=== PATIENT | male | born 1965 | race Caucasian/White ===

== ENCOUNTER → 2016-10-31 | Outpatient (CLI) | payer BC ==
--- NOTE | 2016-10-31 09:28 | PCVCIMAG ---
EXAM: BILATERAL LOWER EXTREMITY ARTERIAL DUPLEX INDICATION: Peripheral Arterial Disease. Leg pain. Nonhealing ulcer right foot and FINDINGS: Right Leg: Satisfactory arterial waveforms in the common femoral and profunda femoral arteries. The mid and distal [place] superficial femoral artery and the entire right [place] popliteal artery show complete occlusion throughout. Occlusion throughout the anterior tibial artery. Postsurgical changes of a femoral to distal posterior tibial artery bypass graft with good flow throughout the graft and no evidence of significant stenosis. The posterior tibial artery and peroneal artery are patent. Left Leg: Satisfactory arterial waveforms in the common femoral and profunda femoral arteries. Occlusion throughout the mid superficial femoral artery. The popliteal artery is patent. Occlusion throughout the anterior tibial artery. The peroneal artery and posterior tibial arteries are patent. IMPRESSION: Previous right femoral-distal posterior tibial artery bypass graft showing good patency as detailed above. Occlusion of the mid [place] left superficial femoral artery. Occlusion of the right and left anterior tibial arteries. LOC:[id number]
--- NOTE | 2016-10-31 11:57 | PCVCIMAG ---
EXAM: BILATERAL CAROTID DUPLEX INDICATION: Carotid Occlusive Disease. FINDINGS: Doppler Measurements (centimeters per second): RIGHT: Peak CCA-79, Peak ECA-90, Diastolic ICA-151, Peak ICA-401, ICA/CCA Ratio-5.1. LEFT: Peak CCA-56, Peak ECA-94, Diastolic ICA-24, Peak ICA-65, ICA/CCA Ratio-1.2. RIGHT CAROTID: The carotid bulb has moderate plaque. The proximal internal carotid artery shows 90-95% stenosis. The common carotid artery shows no significant stenosis. The external carotid artery shows no significant stenosis. LEFT CAROTID: The carotid bulb has moderate plaque. The proximal internal carotid artery shows <40% stenosis. The common carotid artery shows no significant stenosis. The external carotid artery shows no significant stenosis. Antegrade flow in both vertebral arteries. IMPRESSION: 90-95% stenosis of the right internal carotid artery with moderate plaque. <40% stenosis of the left internal carotid artery with moderate plaque. LOC:[place] [id number]
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
--- NOTE | 2016-10-31 13:51 | PCVCIMAG ---
APPROVED REPORT Study performed: 10/31/2016 07:21:16 EXAM: Comprehensive 2D, Doppler, and color-flow Echocardiogram Patient Location: Echo lab Status: routine BSA: 2.26 HR: 71 bpmBP: 154/82 mmHg Rhythm: NSR Other Information Study Quality: Adequate Risk Factors: Cardiac Risk Factors: HTN, DM,PAD, SOB Indications Abnormal ECG Chest Pressure Diabetes Dyspnea HX AORTO-FEM BYPASS 2D Dimensions LVEF(%): 31.52 (>50%) IVSd: 7.67 (7-11mm) LVDd: 61.47 mm PWd: 11.08 (7-11mm)Ascending Ao: 29.35 (22-36mm) LVDs: 52.13 (25-40mm) Left Atrium: 37.62 (27-40mm) Aortic Root: 24.52 mm LV Single Plane 4CH: 34.50 % LV Single Plane 2CH: 47.20 %Rivera's LVEF: 40.85 % Biplane EF: 38.0 % Volumes Left Atrial Volume (Systole) Single Plane 4CH: 72.40 mLSingle Plane 2CH: 44.76 mL Biplane LA Volume: 60.00 mLLA ESV Index: 26.00 mL/m2 Aortic Valve AoV Peak Franc.: 1.14 m/s AO Peak Gr.: 5.18 mmHgLVOT Max P.55 mmHg LVOT Max V: 0.80 m/s Mitral Valve E/A Ratio: 1.3 MV Decel. Time: 122.48 ms MV E Max Franc.: 0.95 m/s MV A Franc.: 0.72 m/s IVRT: 86.51 ms TDI E/Lateral E': 15.83E/Medial E': 15.83 Medial E' Franc.: 0.06 m/s Lateral E' Franc.: 0.06 m/s Pulmonary Valve PV Peak Franc.: 1.09 m/sPV Peak Gr.: 4.71 mmHg Pulmonary Vein P Vein S: 0.73 m/sP Vein A: 0.30 m/s P Vein D: 0.43 m/sP Vein A Dur.: 120.0 msec P Vein S/D Ratio: 1.70 Tricuspid Valve TV Vmax: 0.60 m/s Left Ventricle Left ventricle is mildly dilated. There is global hypokinesis of the left ventricle. Anteroseptal hypokinesis with dilitation. Inferoseptal ,basal inferior and inferolateral moderate hypokinesis There is normal left ventricular wall thickness. Left ventricular systolic function is moderately decreased.hypokinetic inf base LVEF is 35-40%. Grade II - pseudonormal filling dynamics. Right Ventricle The right ventricle is normal size. The right ventricular systolic function is normal. Atria The left atrium size is normal. The right atrium size is normal. Aortic Valve Aortic valve is trileaflet. The Aortic valve is mildly sclerotic. No aortic regurgitation is present. There is no aortic valvular stenosis. Mitral Valve The mitral valve is normal in structure. There is no mitral valve regurgitation noted. No evidence of mitral valve stenosis. Tricuspid Valve The tricuspid valve is normal in structure. There is no tricuspid valve regurgitation noted. Pulmonic Valve The pulmonary valve is normal in structure. There is no pulmonic valvular regurgitation. Great Vessels The aortic root is normal in size. IVC is normal in size and collapses with >50% inspiration Pericardium There is no pericardial effusion. <Conclusion> Left ventricle is mildly dilated. Left ventricular systolic function is moderately decreased.hypokinetic inf base LVEF is 35-40%. Grade II - pseudonormal filling dynamics. The left atrium size is normal. Aortic valve is trileaflet. The Aortic valve is mildly sclerotic. There is no aortic valvular stenosis. There is no mitral valve regurgitation noted. There is no tricuspid valve regurgitation noted. There is no pericardial effusion.
--- NOTE | 2016-10-31 17:40 | PCVCINTER ---
EXAM: 1. CERVICOEPHALIC ARCH AORTOGRAM 2. BILATERAL CAROTID ANGIOGRAPHY 3. LEFT VERTEBROBASILAR ANGIOGRAPHY 4. BILATERAL RENAL ANGIOGRAPHY 5. AORTOGRAM AND BILATERAL LOWER EXTREMITY ANGIOGRAPHY INDICATION: Carotid occlusive disease. Left subclavian steal. Hypertension. Renal atherosclerosis. PROCEDURE: Procedure and risks of the procedures listed above were discussed with the patient and consent obtained. Risks including but not limited to bleeding, infection, stroke, vascular injury, neurologic injury, embolization, allergic reactions, and contrast-induced nephropathy requiring dialysis were discussed as appropriate and consent obtained. Patient was placed on the angiography table. IV conscious sedation was utilized with appropriate monitoring for 60 minutes. The left groin was prepped and draped in the normal sterile fashion. Ultrasound was used to interrogate the left groin and demonstrate the left common femoral artery. An ultrasound image was saved. Under ultrasound guidance a 21 gauge needle was used to gain access into the left common femoral artery and a 6F vascular sheath was placed. Catheter was placed into the ascending aorta and cervicocephalic aortic arch angiogram performed. Catheter was placed into the suprarenal abdominal aorta and abdominal aortic angiogram performed. Catheter was placed at the aortic bifurcation and both oblique views of the pelvis were obtained. Catheter was placed into the right common carotid artery and right common carotid angiogram performed. Catheter was placed into the left common carotid artery and left common carotid angiogram performed. Catheter was placed into the left subclavian artery and left vertebro-basilar angiogram performed. Catheter was placed into the right renal artery and right renal angiogram performed. Catheter was placed into the left renal artery and left renal angiogram performed. Catheter was placed to the level of the right external iliac artery and right leg runoff angiography was performed. Catheter placed in the left external iliac artery and left leg runoff angiogram was obtained. Dr. Bailey joined the procedure and he then performed coronary angiography. Please see his separate dictation for full details. Catheters and wires were removed and hemostasis obtained using the Exoseal device. No immediate complications. FINDINGS: Cervicocephalic arch aortogram: The origins of the great vessels are patent. Cranial directed flow in both vertebral arteries. Right common carotid angiogram: This injection fills the right anterior cerebral and right middle cerebral distributions which show mild scattered plaque without significant stenosis. Diffuse plaque in the cavernous and petrous carotids without flow-limiting stenosis. Moderate plaque in the carotid bulb results in 85% tapered stenosis in the proximal internal carotid artery. The common and external carotid arteries are patent. Left common carotid angiogram: This injection fills the right and left anterior cerebral and the left middle cerebral distribution which show mild scattered plaque without focal abnormality. There is a 60% stenosis at the junction of the C3/C4 cavernous carotid artery. Moderate plaque at the petrous carotid without significant stenosis. Minimal stenosis at the origin of the internal carotid artery. The common carotid and external carotid arteries show good patency. Left vertebrobasilar angiogram: The left vertebral artery is patent as is the basilar artery and both posterior cerebral arteries. Right renal angiogram: Minimal plaque proximal vessel does not cause significant stenosis. No branch vessel stenosis. Left renal angiogram: Minimal plaque proximal vessel does not cause significant stenosis. No branch vessel stenosis. Aortogram: There is one right and one left renal artery. Moderate plaque infrarenal abdominal aorta without significant stenosis. Pelvis: Mild plaque right common iliac artery without significant stenosis. Moderate plaque left common iliac artery with 40% stenosis. Both internal iliac arteries are patent. Both external iliac arteries are patent. The right and left profunda femoral arteries show adequate patency. Right leg: The [place] superficial femoral artery and popliteal artery show complete occlusion throughout. Post surgical changes of femoral to distal posterior tibial artery saphenous vein bypass graft is widely patent. There is retrograde filling of the upper posterior tibial artery which refills the tibioperoneal trunk and also the peroneal artery. The distal posterior tibial artery also shows good patency to runoff into the plantar arteries. Left leg: The [place] superficial femoral artery shows complete occlusion throughout with refilling distally. The popliteal artery is patent. The anterior tibial artery is occluded. High-grade stenosis at the origin of the posterior tibial artery. Posterior tibial artery otherwise patent. Peroneal artery is patent throughout its length. IMPRESSION: 85% tapered stenosis proximal right internal carotid artery. 60% stenosis left cavernous internal carotid artery as described. The cervical left internal carotid artery shows satisfactory patency. Previous right femoral-distal posterior tibial arteries bypass graft remains widely patent. Occlusion of the left superficial femoral artery. Bilateral infrapopliteal arterial occlusive disease as reviewed above. impression LOC:[id number]
--- NOTE | 2016-11-01 09:20 | PCVCINTER ---
APPROVED REPORT Patient Details Patient Status: Out-Patient Room #: 4 The patient is a 51 year-old Male Event Personnel Leo Diana MD, Celestino Hill RN, Tory Galvan RT(R)(), Nora Frederick RT(R) Risk Factors Dysplipidemia (Type: 0), Peripheral Vascular Disease, Physical Activity, Diabetes Tobacco History (Current/Recent(w/in 1 year)) Previous Procedures/Diagnoses Previous Vascular Surgery, Diabetes, PVD Procedure Narrative The patient was brought electively to the Cardiac Catheterization Laboratory and was prepped and draped in a sterile manner. The right coronary system was accessed and visualized with a JR4 Diagnostic catheter. The left coronary system was accessed and visualized with a JL 3.5 Diagnostic catheter. The left ventricle was accessed and visualized with a Pigtail Diagnostic catheter. Left ventriculogram was performed in BURNS projection. Closure device was deployed with a 6 Fr FISH. Hemostasis was obtained with manual pressure following sheath removal without any complications. The patient tolerated the procedure well and there were no complications associated with the procedure. There was no hematoma. Hemodynamics The aortic pressure is 134/89 mmHg with a mean of 111 mmHg. The left ventricular pressure is 149/11 mmHg with a mean of 26 mmHg. Conclusion #1 normal left ventricular size with inferior basilar hypokinesis EF 40-45% #2 left main mildly heavily calcified with distal disease of 30-40% #3 LAD heavily proximal calcified proximal third of this vessel 60-70% diffuse disease distal two thirds well-preserved extends around the apex #4 moderate diagonal branch subtotally occluded off the LAD which has a fair amount of distribution and preserved distally #5 circumflex OM system nondominant high-grade proximal disease and a large OM and also diffuse disease in the proximal circumflex although nondominant #6 dominant right proximally occluded there is extensive collateralization of the PDA and YARITZA which are quite large from the left system. Recommendations and plan patient also has a high-grade carotid stenosis. This is moderately severe three-vessel disease equivalent. Mild LV dysfunction suspect this may improve with revascularization of the right coronary artery Extensive proximal calcified disease in the left system. Patient will be best served with revascularization by bypass surgery I suspected carotid endarterectomy should be performed first. I will have CV surgery consult and render opinion. We'll lab cardioprotective medications and advanced lipid therapy with high-dose statins. Discharge to home no lifting for 48 hours no line tub Jacuzzi or Celeste for a week. Appointment CV surgery this week regarding carotid endarterectomy and revascularization coronary system
== END | disposition home or self-care (01) ==
LOC: PCVCIMAG 06:58
PROVIDERS: ATTEND Internal Medicine Cardiovascular Disease
DX: I65.23 Occlusion and stenosis of bilateral carotid arteries (principal); G45.8 Other transient cerebral ischemic attacks and related syndromes; I10 Essential (primary) hypertension; I70.1 Atherosclerosis of renal artery; E11.51 Type 2 diabetes mellitus with diabetic peripheral angiopathy without gangrene
CPT/HCPCS: 36223; 36246; 36252; 75716; 76937; 78452; 93017; 93306; 93458; 93880; 93925; 99152; 99153; A9500; C1751; C1769; C1894; Q9967

== ENCOUNTER → 2017-02-22 | Outpatient (CLI) | payer BC ==
[~2017-02-22] MED LIST: DIAZEPAM 10 MG TABLET. ONE; EPINEPHrine 1 MG/ML VIAL ONE; IODIXANOL 270 MG/ML 100 ML VIAL. ONE; IOHEXOL 300 MG/ML 100ML VIAL. ONE; IOHEXOL 350 MG/ML 100 ML VIAL. ONE; IV NORMAL SALINE 1000ML BAG 1,000 ML ONE; LIDOCAINE 1% Multi-Dose 20 ML VIAL. ONE; MIDAZOLAM HCL/PF 2 MG/2 ML VIAL. ONE; REGADENOSON 0.4 MG/5 ML DISP.SYRIN. IV ONE; fentaNYL PF VIAL 100 MCG/2 ML VIAL ONE; hydrALAZINE 20 MG/ML VIAL. ONE
--- NOTE | 2017-02-22 11:12 | PCVCIMAG ---
APPROVED REPORT Study performed: 02/22/2017 09:45:29 EXAM: Comprehensive 2D, Doppler, and color-flow Echocardiogram Patient Location: Echo lab Status: routine BSA: 2.24 HR: 98 bpmBP: 138/70 mmHg Rhythm: NSR Other Information Study Quality: Adequate Risk Factors: Cardiac Risk Factors: HTN, Hyperlipidemia, DM, Smoking, SOB Indications COPD CAD Hypertension/HDD CABG, PVD, CVA, Carotid Disease 2D Dimensions LVEF(%): 60.27 (>50%) IVSd: 10.84 (7-11mm)LVOT Diam: 23.16 (18-24mm) LVDd: 59.72 mm PWd: 10.46 (7-11mm)Ascending Ao: 29.20 (22-36mm) LVDs: 40.18 (25-40mm) Left Atrium: 37.81 (27-40mm) Aortic Root: 30.12 mm LV Single Plane 4CH: 37.61 % LV Single Plane 2CH: 42.94 %Rivera's LVEF: 40.28 % Biplane EF: 39.5 % Volumes Left Atrial Volume (Systole) Single Plane 4CH: 52.76 mLSingle Plane 2CH: 43.93 mL LA ESV Index: 24.00 mL/m2 Aortic Valve AoV Peak Franc.: 1.26 m/s AO Peak Gr.: 6.36 mmHgLVOT Max P.96 mmHg LVOT Max V: 0.86 m/s NICKOLAS Vmax: 2.87 cm2 Mitral Valve E/A Ratio: 0.7 MV Decel. Time: 220.88 ms MV E Max Franc.: 0.57 m/s MV A Franc.: 0.84 m/s TDI E/Lateral E': 7.13E/Medial E': 9.50 Medial E' Franc.: 0.06 m/s Lateral E' Franc.: 0.08 m/s Pulmonary Valve PV Peak Gr.: 2.03 mmHg Pulmonary Vein P Vein S: 0.44 m/sP Vein A: 0.22 m/s P Vein D: 0.32 m/sP Vein A Dur.: 58.8 msec P Vein S/D Ratio: 1.38 Left Ventricle The left ventricle is normal size. Global hypokinesis. Lateral wall hypokinetic, inferior wall hypokinesis. There is normal left ventricular wall thickness. Left ventricular systolic function is moderately decreased.distal septum apex hypo LVEF is 35-40%. The left ventricular diastolic function is normal. Right Ventricle The right ventricle is normal size. The right ventricular systolic function is normal. Atria The left atrium size is normal. The right atrium size is normal. Aortic Valve The aortic valve is normal in structure. No aortic regurgitation is present. There is no aortic valvular stenosis. Mitral Valve The mitral valve is normal in structure. There is no mitral valve regurgitation noted. No evidence of mitral valve stenosis. Tricuspid Valve The tricuspid valve is normal in structure. There is no tricuspid valve regurgitation noted. Pulmonic Valve The pulmonary valve is normal in structure. There is no pulmonic valvular regurgitation. Great Vessels The aortic root is normal in size. IVC is normal in size and collapses with >50% inspiration Pericardium There is no pericardial effusion. <Conclusion> The left ventricle is normal size. Left ventricular systolic function is moderately decreased.distal septum apex hypo LVEF is 35-40%. The right ventricle is normal size. The left atrium size is normal. The right atrium size is normal. No aortic regurgitation is present. There is no mitral valve regurgitation noted. There is no tricuspid valve regurgitation noted. There is no pericardial effusion.
--- NOTE | 2017-02-22 15:59 | PCVCIMAG ---
EXAM: BILATERAL CAROTID DUPLEX INDICATION: Carotid Occlusive Disease. FINDINGS: Doppler Measurements (centimeters per second): RIGHT: Peak CCA-97, Peak ECA-134, Diastolic ICA-27, Peak ICA-100, ICA/CCA Ratio-1.0. LEFT: Peak CCA-81, Peak ECA-141, Diastolic ICA-19, Peak ICA-68, ICA/CCA Ratio-0.8. RIGHT CAROTID: The carotid bulb has no significant plaque. The proximal internal carotid artery shows no significant stenosis. The common carotid artery shows no significant stenosis. The external carotid artery shows no significant stenosis. LEFT CAROTID: The carotid bulb has moderate plaque. The proximal internal carotid artery shows <40% stenosis. The common carotid artery shows no significant stenosis. The external carotid artery shows no significant stenosis. Antegrade flow in both vertebral arteries. IMPRESSION: No significant stenosis of the right internal carotid artery with no significant plaque. <40% stenosis of the left internal carotid artery with moderate plaque. LOC:OFFICE
== END | disposition home or self-care (01) ==
LOC: PCVCIMAG 09:20
PROVIDERS: ATTEND Internal Medicine Cardiovascular Disease
DX: I65.23 Occlusion and stenosis of bilateral carotid arteries (principal); E11.9 Type 2 diabetes mellitus without complications; J44.9 Chronic obstructive pulmonary disease, unspecified; I10 Essential (primary) hypertension; E78.5 Hyperlipidemia, unspecified; I73.9 Peripheral vascular disease, unspecified; I63.9 Cerebral infarction, unspecified; I25.10 Atherosclerotic heart disease of native coronary artery without angina pectoris; Z95.1 Presence of aortocoronary bypass graft
CPT/HCPCS: 93306; 93880; J0171; J0360; J1644; J2250; J2785; J3010; J7030; Q9967

== ENCOUNTER → 2017-06-21 | Outpatient (CLI) | payer BC ==
[~2017-06-21] MED LIST changes: -DIAZEPAM 10 MG TABLET. ONE; -EPINEPHrine 1 MG/ML VIAL ONE; -IODIXANOL 270 MG/ML 100 ML VIAL. ONE; -IOHEXOL 300 MG/ML 100ML VIAL. ONE; -IOHEXOL 350 MG/ML 100 ML VIAL. ONE; -IV NORMAL SALINE 1000ML BAG 1,000 ML ONE; -LIDOCAINE 1% Multi-Dose 20 ML VIAL. ONE; -MIDAZOLAM HCL/PF 2 MG/2 ML VIAL. ONE; +REGADENOSON 0.4 MG/5 ML DISP.SYRIN. IV; -REGADENOSON 0.4 MG/5 ML DISP.SYRIN. IV ONE; -fentaNYL PF VIAL 100 MCG/2 ML VIAL ONE; -hydrALAZINE 20 MG/ML VIAL. ONE
== END | disposition home or self-care (01) ==
LOC: PCVCIMAG 16:00
DX: I25.10 Atherosclerotic heart disease of native coronary artery without angina pectoris (principal); R06.00 Dyspnea, unspecified; R07.9 Chest pain, unspecified; E11.9 Type 2 diabetes mellitus without complications; I73.9 Peripheral vascular disease, unspecified; J44.9 Chronic obstructive pulmonary disease, unspecified; Z87.891 Personal history of nicotine dependence; Z95.1 Presence of aortocoronary bypass graft
CPT/HCPCS: 78452; 93017; A9500; J2785

== ENCOUNTER → 2019-01-20 | Outpatient (CLI) | payer BC ==
--- NOTE | 2019-01-20 16:47 | PCVCIMAG ---
EXAM: BILATERAL LOWER EXTREMITY ARTERIAL DUPLEX INDICATION: Peripheral Arterial Disease. Leg pain. FINDINGS: Right Leg: Common femoral and profunda femoral arteries are patent. Occlusion throughout the [place] superficial femoral artery and popliteal artery. Occlusion of the peroneal and anterior tibial artery. Postsurgical changes of femoral to mid posterior tibial artery bypass graft maintaining satisfactory flow throughout with only mild stenosis in the graft seen at the mid thigh level not felt to be flow-limiting. Left Leg: Common femoral and profunda femoral arteries are patent. Occlusion of the [place] superficial femoral artery. Popliteal artery is patent. Occlusion throughout the anterior tibial artery. The peroneal and posterior tibial arteries are patent. IMPRESSION: Right femoral-mid posterior tibial artery bypass maintaining adequate patency. Unchanged occlusion [place] right superficial femoral artery and popliteal artery. Unchanged occlusion throughout the [place] left superficial femoral artery. Occlusion of the right anterior tibial and peroneal arteries and the left anterior tibial artery. LOC:[id number]
== END | disposition home or self-care (01) ==
LOC: PCVCIMAG 14:39
PROVIDERS: ATTEND Internal Medicine Cardiovascular Disease
DX: I73.9 Peripheral vascular disease, unspecified (principal); E11.9 Type 2 diabetes mellitus without complications; K21.9 Gastro-esophageal reflux disease without esophagitis; E78.5 Hyperlipidemia, unspecified; M19.90 Unspecified osteoarthritis, unspecified site; I10 Essential (primary) hypertension; Z87.891 Personal history of nicotine dependence
CPT/HCPCS: 93925